=== PATIENT | female | born 1970 | race Caucasian/White ===

== ENCOUNTER 2018-07-15 19:50 | Emergency (ER) | payer BC ==
--- NOTE | 2018-07-15 20:43 | RADIOLOGY REPORT (SQ) ---
2 VIEWS OF THE LEFT RIBS AND AP CHEST HISTORY: Rib pain. COMPARISON: None. FINDINGS/IMPRESSION: No displaced rib fractures are seen. The lungs are clear. No pneumothorax or pleural effusions are seen. IMPRESSION: No displaced left-sided rib fractures are seen. If there is high clinical concern or point tenderness, consider CT scan.
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
[2018-07-15 22:49] VITALS: BP 118/82
== END 2018-07-15 22:51 | disposition home or self-care (01) ==
LOC: ER 19:50
DX: S29.9XXA Unspecified injury of thorax, initial encounter (principal); X50.0XXA Overexertion from strenuous movement or load, initial encounter; Y93.89 Activity, other specified; G89.29 Other chronic pain; Z79.899 Other long term (current) drug therapy; Z88.5 Allergy status to narcotic agent; Z88.6 Allergy status to analgesic agent
CPT/HCPCS: 99283